=== PATIENT | male | born 1970 | race American Indian/Alaskan Native ===

== ENCOUNTER 2018-11-08 10:11 | Emergency (ER) | payer BC ==
[2018-11-08] MEDS ORDERED: ZOFRAN IV ONE ×2 (10:55→13:49)
[2018-11-08] MEDS ORDERED: DILAUDID IV ONE (10:55)
[2018-11-08] MEDS ORDERED: XYLOCAINE 1% 20 mL ONE (11:29)
--- NOTE | 2018-11-08 11:39 | Emergency Department Report ---
ED Male HPI - General Chief complaint: Urogenital-Male Stated complaint: PAINFUL ERECTION Time Seen by Provider: 11/08/18 10:55 Source: patient Mode of arrival: Ambulatory Limitations: No Limitations - History of Present Illness Initial comments: 48 yo male the past medical history of hypertension and previous priapism 3 years ago which trazodone use presents to the hospital with complaints of priapism since waking up at 6 AM. Patient complains 9/10 pain that is constant. For the last week patient has been able to orgasm with sex but did not ejaculate. He is currently taking lisinopril, Norvasc, hydralazine, carvedilol, aspirin 81 mg, and Zoloft. He denies any new medication or erectile dysfunction medication. Pt presents hypertensive and states he took is BP meds this am. - Related Data Allergies Allergy/AdvReac Type Severity Reaction Status Date / Time Penicillins Allergy Unknown Verified 11/08/18 11:01 trazodone AdvReac Unknown Verified 11/08/18 11:01 ED Review of Systems ROS: Stated complaint: PAINFUL ERECTION Other details as noted in HPI Comment: All other systems reviewed and negative ED Past Medical Hx - Past Medical History Previous Medical History?: Yes Hx Hypertension: Yes Hx CVA: Yes (no residual deficits) Hx Diabetes: Yes Additional medical history: Insomnia - Surgical History Past Surgical History?: Yes Additional Surgical History: left knee X2, left hand, rigth eye retina - Social History Smoking Status: Never Smoker Substance Use Type: None ED Physical Exam - General Limitations: No Limitations - Other Other exam information: General: No limitations, patient is alert in no acute distress Head exam: Atraumatic, normocephalic Eyes exam: Normal appearance ENT: Moist mucous membrane, normal oropharynx Neck exam: Normal inspection, full range of motion, no meningismus nontender Respiratory exam: Clear to auscultation bilateral, no wheezes, rales, crackles Cardiovascular: Normal rate and rhythm, normal heart sounds Abdomen: Soft, nondistended, and nontender, with normal bowel sounds, no rebound, or guarding : Circumcised, priapism Extremity: Full range of motion normal inspection no deformity Back: Normal Inspection, full range of motion, no tenderness Neurologic: Alert, oriented x3, cranial nerves intact, no motor or sensory deficit Psychiatric: normal affect, normal mood Skin: Warm, dry, intact ED Course Vital Signs 11/08/18 11/08/18 11/08/18 10:15 11:14 11:38 Temperature 98.4 F 97.9 F Pulse Rate 61 56 L Respiratory 18 16 18 Rate Blood Pressure 172/101 146/87 [Left] Blood Pressure 173/110 [Right] O2 Sat by Pulse 96 95 Oximetry 11/08/18 11/08/18 13:31 14:01 Temperature 97.5 F L Pulse Rate 59 L 54 L Respiratory 18 16 Rate Blood Pressure 104/68 132/80 [Left] Blood Pressure [Right] O2 Sat by Pulse 94 95 Oximetry - Reevaluation(s) Reevaluation #1: 11/08/18 11:41 after pain meds, BP improved. Reevaluation #2: 11/08/18 14:55 pt developed diaphoresis and nausea with systolic pressure dropping to 104. Accu-Chek was 164. Labs obtained, Zofran, and normal saline. At this time bebe finney feels better. He currently having pain at the bilateral injection sites of the penis. He is having some persistent priapism however, not as painful for as erect after aspiration and phenylephrine injection - Consultations Consultation #1: 11/08/18 15:10 urology paged 11/08/18 15:15 Case d/w Dr Early who recommends that pt be sent to the office for further evaluation - Penile Procedure Consent Obtained: verbal consent Time Out Performed: Yes Indication: priapism management Procedural Sedation: No Local Anesthesia Used: Lidocaine 1% without EPI Amount of Anesthesia Used (mls): 5 Priapism Management: aspiration, phenylephrine injection Complications: persistent priapism (but mild) Patient Tolerated Procedure: well ED Medical Decision Making - Lab Data Result diagrams: 11/08/18 14:00 11/08/18 14:00 Lab Results 11/08/18 11/08/18 11/08/18 Range/Units 14:00 14:00 14:00 WBC 8.4 (4.5-11.0) K/mm3 RBC 4.13 (3.65-5.03) M/mm3 Hgb 12.9 (11.8-15.2) gm/dl Hct 37.7 (35.5-45.6) % MCV 91 (84-94) fl MCH 31 (28-32) pg MCHC 34 (32-34) % RDW 13.7 (13.2-15.2) % Plt Count 322 (140-440) K/mm3 Lymph % (Auto) 34.1 (13.4-35.0) % Davie % (Auto) 7.1 (0.0-7.3) % Eos % (Auto) 3.4 (0.0-4.3) % Baso % (Auto) 0.1 (0.0-1.8) % Lymph # 2.9 (1.2-5.4) K/mm3 Davie # 0.6 (0.0-0.8) K/mm3 Eos # 0.3 (0.0-0.4) K/mm3 Baso # 0.0 (0.0-0.1) K/mm3 Seg Neutrophils % 55.3 (40.0-70.0) % Seg Neutrophils # 4.6 (1.8-7.7) K/mm3 Sodium 143 (137-145) mmol/L Potassium 3.6 (3.6-5.0) mmol/L Chloride 104.3 (98-107) mmol/L Carbon Dioxide 28 (22-30) mmol/L Anion Gap 14 mmol/L BUN 12 (9-20) mg/dL Creatinine 0.8 (0.8-1.5) mg/dL Estimated GFR > 60 ml/min BUN/Creatinine Ratio 15 % Glucose 157 H (75-100) mg/dL POC Glucose 164 H (70-105) Calcium 8.9 (8.4-10.2) mg/dL Troponin T < 0.010 (0.00-0.029) ng/mL - EKG Data -: EKG Interpreted by Dc EKG shows normal: sinus rhythm, axis (qrs -31), QRS complexes (qrsd 107), ST-T waves (no stemi) Rate: bradycardia (51) - Medical Decision Making pt still partially erect several hours s/p aspiration Pt experienced some nausea and diaphoresis that improved with Zofran and IV fluids. Labs normal. EKG unremarkable for acute ischemic changes. Patient will be transferred to neurologist office for further management of priapism. RN instructed to transfer pt to office with IV in place in case it is needed. It can be d/michelle by the urology office - Differential Diagnosis priapism (med vs spontaneous) Critical Care Time: No Critical care attestation.: If time is entered above; I have spent that time in minutes in the direct care of this critically ill patient, excluding procedure time. ED Disposition Clinical Impression: Priapism, HTN (hypertension) Disposition: -01 TO HOME OR SELFCARE Is pt being admited?: No Does the pt Need Aspirin: No Condition: Stable Instructions: Priapism (ED), Hypertension (ED) Additional Instructions: Go directly to the urologist's office upon discharge. Referrals: FERNANDO EARLY MD [Staff Physician] - 11/08/18 Time of Disposition: 15:21 (D/c to go to Urology office)
[2018-11-08] MEDS ORDERED: NORMODYNE IV ONE (11:40)
[2018-11-08] MEDS ORDERED: NEO-SYNEPHRINE 1 MG, NACL P/F VIAL (10 ML) 9.9 ML IJ**NOT IV ONE (12:00)
[2018-11-08] MEDS ORDERED: NACL 0.9% 1000 ML 1,000 ML IV ONE (13:49)
[2018-11-08] MEDS ORDERED: ZOFRAN ONE (13:52)
[2018-11-08] MEDS ORDERED: NACL 0.9% 1000 ML 1,000 ML ONE (13:52)
[2018-11-08 14:14] LABS: Basophils % (Auto) 0.1 % (0.0-1.8); Eosinophils # (Auto) 0.3 K/mm3 (0.0-0.4); Eosinophils % (Auto) 3.4 % (0.0-4.3); Hematocrit 37.7 % (35.5-45.6); Hemoglobin 12.9 gm/dl (11.8-15.2); Lymphocytes # (Auto) 2.9 K/mm3 (1.2-5.4); Lymphocytes % (Auto) 34.1 % (13.4-35.0); Mean Corpuscular HGB Conc 34 % (32-34); Mean Corpuscular Volume 91 fl (84-94); Monocytes # (Auto) 0.6 K/mm3 (0.0-0.8); Monocytes % (Auto) 7.1 % (0.0-7.3); Platelet Count 322 K/mm3 (140-440); Red Blood Count 4.13 M/mm3 (3.65-5.03); Red Cell Distribution Width 13.7 % (13.2-15.2)
[2018-11-08 14:37] LABS: BUN/Creatinine Ratio 15; Blood Urea Nitrogen 12 mg/dL (9-20); Calcium 8.9 mg/dL (8.4-10.2); Hemolysis Index 23
[2018-11-08 15:32] VITALS: BP 147/90
== END 2018-11-08 15:32 | disposition home or self-care (01) ==
LOC: ED 10:11
DX: N48.30 Priapism, unspecified (principal); I10 Essential (primary) hypertension; E11.9 Type 2 diabetes mellitus without complications; G47.00 Insomnia, unspecified; Z88.0 Allergy status to penicillin; Z88.5 Allergy status to narcotic agent
CPT/HCPCS: 36415; 54220; 80048; 82962; 84484; 85025; 93005; 93010; 96374; 96375; 96376; 99284; J1170; J2405; J7030